=== PATIENT | male | born 1940 | race Caucasian/White ===

== ENCOUNTER 2016-11-06 21:53 | Emergency (ER) | payer OTHER ==
--- NOTE | 2016-11-06 23:40 | PROVIDER DOCUMENTATION ---
HPI-Musculoskeletal Pain/Inj - GENERAL Chief Complaint: Fall Stated Complaint: FALL, BACK PAIN Time Seen by Provider: 11/06/16 23:35 Source: patient - HX OF PRESENT ILLNESS-MUSKULOSKELTAL Nature of Presenting Problem: Pt is a 76 yom who presents to ER with CC of back pain, secondary to a fall. Pt reports that he was walking up his steps at home when he missed his first step, fell backwards, and hurt his back. Pt denies hitting his head, loc, or headache. On exam, pt has no contusions/abrasions. Quality of Pain: reports: cramping Severity in ED: mild Onset/Duration: just prior to arrival Timing: still present Any recent injury?: Yes Locality of Occurance: Home - FALL INJURY Location of Pain/Injury: reports: back (mid-thoracic back pain) Pain Radiation: reports: no radiation Reason for Fall: reports: slipped Symptoms prior to fall:: reports: none Loss of Consciousness: no loss of consciousness Injury Associated Symptoms: reports: back/neck pain, muscle aches. denies: arm pain, chest pain, dizziness, headaches, joint pain, shortness of breath, sensory /motor loss, snap/crack/pop sensation, pain with inspiration, unable to bear weight, vomiting, weakness, trouble walking Review of Systems - Adult - REVIEW OF SYSTEMS - ADULT Constitutional: denies: chills, fever, fatique, night sweats, weight gain, weight loss Eyes: reports: no symptoms reported Ears, Nose, Mouth & Throat: reports: no symptoms reported Cardiovascular: denies: chest pain, edema, heart murmur, irregular heart rate, orthopnea, palpitations, poor circulation, PND, syncope Respiratory: denies: chronic cough, cough, dyspnea on exertion, excessive sputum production, hemoptysis, pleurisy, shortness of breath, wheezing Gastrointestinal: reports: no symptoms reported Genitourinary: reports: no symptoms reported Musculoskeletal: reports: back pain, joint pain, muscle aches. denies: bone pain, frequent leg cramps, joint swelling, muscle weakness, neck pain Integumentary: reports: no symptoms reported Neurological: denies: ataxia, dizziness/vertigo, headache/migraines, loss of balance, numbness, paresthesia, seizure, slurred speech, syncope, tremors Psychiatric: reports: no symptoms reported Endocrine: reports: no symptoms reported Hematologic/Lymphatic: reports: no symptoms reported Allergic/Immunologic: reports: no symptoms reported All Other Systems: Reviewed and Negative Past History - Adult - PAST MEDICAL HISTORY-ADULT Review of Records: reports: Nursing Assessment Review, Medications Reviewed - IMMUNIZATION STATUS Childhood Immunizations: See Nurse Assessment Flu Vaccine: See Nurse Assessment Physical Exam-Injury Related - Physical Exam-Injury Related Initial Vital Signs Reviewed: Yes General Appearance: appears well, alert, mild distress, obese. negative: no apparent distress, moderate distress, lethargic, slow to respond, obtunded, combative Neck: non-tender, full range of motion, supple. negative: C-spine tenderness, decresed ROM, limited range of motion Respiratory: chest non-tender, lungs clear, normal breath sounds. negative: respiratory distress, decreased breath sounds, accessory muscle use, wheezing Cardiovascular: normal peripheral pulses, regular rate, rhythm. negative: bradycardia, tachycardia, irregularly irregular Chest/Breast: no masses/lumps, no tenderness. negative: tenderness Abdominal Exam: normal bowel sounds, non tender, soft. negative: abnormal bowel sounds, distended, tenderness, mass Lymphatic: no adenopathy. negative: axilla node tender, cervical node tenderness Back Exam: no CVA tenderness, vertebral tenderness. negative: no vertebral tenderness, CVA tenderness, decreased range of motion, muscle spasm, swelling Extremity: normal range of motion, non-tender, normal gait. negative: deformity , erythema, inflammation, pedal edema, slow capillary refill, swelling, tenderness Integumentary: normal color, warm/dry. negative: swelling, tenderness, abrasion , contusion(s), champagne red, laceration Neurologic: grossly normal, no motor/sensory deficits. negative: facial droop, focal weakness, motor weakness, sensory deficit Psych/Mental Status: normal mood/affect, normal thought content, normal thought process, oriented x 3 Progress - PLAN OF CARE/RESULTS Progress/Plan/Lab Results: Vital Signs - 24 hr 11/06/16 21:59 Temperature 98.1 F Pulse Rate 76 Respiratory 19 Rate Blood Pressure 195/84 O2 Sat by Pulse 100 Oximetry Orders Category Date Time Status LUMBAR SPINE 2-VIEWS [RAD] Stat Exams 11/06/16 22:14 Taken - XRAY 1 XRAY: Bilateral XRAY Study: C-Spine, Thoracic Spine, Lumbar Spine Impression: See EMR Report XRAY Interpretation: DDD Departure - Departure Time of Disposition Order: 23:44 DIAGNOSIS: Lumbar sprain Qualifiers: Encounter type: subsequent encounter Qualified Code(s): S33.5XXD - Sprain of ligaments of lumbar spine, subsequent encounter Contusion Qualifiers: Encounter type: subsequent encounter Contusion area: lower back Qualified Code( s): S30.0XXD - Contusion of lower back and pelvis, subsequent encounter Disposition: HOME 01 Certified Medical Emergency: Emergent Condition: Stable Additional Instructions: ED Follow Up Instructions: You have been treated by a care provider in the Emergency Department. These instructions are being provided to you so you can have an understanding of how to care for yourself upon discharge. Upon discharge from the Emergency Department, you are responsible for making arrangements for follow-up care by a physician of your choice. Take all prescribed medications as directed. Return to the Emergency Department immediately for any new or worsening symptoms. You may call the Physician Referral phone number at [phone] to obtain a list of Physicians who are taking new patients. Referrals: Yair Parker MD [Primary Care Provider] - Attestation - Scribe Verification/Attestation Scribe:: Sahil Bull Acting as Scribe for:: Isidro Parker Scribe documention review:: This chart was documented by a scribe and accurately reflects the service the provider performed and the decisions made by the provider.
[2016-11-06] MEDS ORDERED: TYLENOL PO ONE (23:55)
[2016-11-07 00:06] VITALS: BP 187/89
--- NOTE | 2016-11-07 07:49 | Diag Imaging Result Document ---
PROCEDURE NAME: LUMBAR SPINE 2-VIEWS - 11/06/2016 LUMBAR SPINE AP AND LATERAL, TWO VIEWS: FINDINGS: There is mild scoliosis and degenerative changes are found throughout the lumbar spine. No compressed vertebra. No subluxation. No other bony abnormality. IMPRESSION: Mild scoliosis with moderate degenerative changes.
== END 2016-11-07 00:06 | disposition home or self-care (01) ==
LOC: ED 21:53
DX: S33.5XXD Sprain of ligaments of lumbar spine, subsequent encounter (principal); S30.0XXD Contusion of lower back and pelvis, subsequent encounter; M54.5 Low back pain; M79.1 Myalgia; M54.6 Pain in thoracic spine; E66.9 Obesity, unspecified; W10.9XXA Fall (on) (from) unspecified stairs and steps, initial encounter; Z79.899 Other long term (current) drug therapy; Z79.01 Long term (current) use of anticoagulants
CPT/HCPCS: 72100; 99282